=== PATIENT | male | born 1950 | race Caucasian/White ===

== ENCOUNTER → 2023-06-15 08:34 | Outpatient (REF) | payer MEDICARE, SELFPAY | LOC: MRI 3T 08:34 | PROVIDERS: ATTENDING PHYSICIAN Specialist; FAMILY PHYSICIAN Family Medicine | DX: R97.20 Elevated prostate specific antigen [PSA] (principal) | CPT/HCPCS: 72197; A9575 ==

== ENCOUNTER 2024-12-08 06:25 | Day surgery (SDC) | payer MEDICARE, SELFPAY | END 2024-12-08 08:35 | disposition home or self-care (01) | LOC: GI 06:25 | PROVIDERS: ATTENDING PHYSICIAN Internal Medicine Gastroenterology | DX: Z12.11 Encounter for screening for malignant neoplasm of colon (principal); D12.8 Benign neoplasm of rectum; K64.8 Other hemorrhoids; Z86.0100 Personal history of colon polyps, unspecified | CPT/HCPCS: 45385; 88305 ==